=== PATIENT | female | born 1985 | race American Indian/Alaskan Native ===

== ENCOUNTER 2021-06-03 16:27 | Emergency (ER) | payer OTHER ==
[2021-06-03] MEDS ORDERED: Ketorolac 30 MG/ML SDV IM ONE (16:53)
[2021-06-03] MEDS ORDERED: Ondansetron 4 MG Tab.DIS PO ONE (16:54)
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
== END 2021-06-03 18:05 | disposition home or self-care (01) ==
LOC: FB.ED 16:27
DX: M54.5 Low back pain (principal)
CPT/HCPCS: 96372; 99283; A9270; J1885